=== PATIENT | female | born 1940 | race Caucasian/White ===

== ENCOUNTER → 2016-07-17 | Outpatient (CLI) | payer MEDICAID, MEDICARE ==
[2016-07-17 10:29] LABS: Basophils # (A) 0.1 k/uL (0-0.2); Basophils % (A) 2 %; CH 33.1; CHCM 33.6; Eosinophils # (A) 0.1 k/uL (0-0.7); Eosinophils % (A) 1 %; HCT 39.1 % (34.0-46.0); HDW 2.69; HGB 12.4 gm/dL (11.4-16.0); Luc # (Auto) 0.13; Luc % (Auto) 2; Lymphocytes # (A) 2.1 k/uL (1.0-4.8); Lymphocytes % (A) 37 %; MCH 31.4 pg (25.0-35.0); MCHC 31.7 g/dL (31.0-37.0); MCV 98.9 fL (80.0-100.0); Mean Platelet Volume 8.8; Monocytes # (A) 0.3 k/uL (0-1.0); Monocytes % (A) 6 %; Neutrophils # (A) 2.9 k/uL (1.3-7.7); Neutrophils % (A) 52 %; RBC 3.95 m/uL (3.80-5.40); WBC 5.7 k/uL (3.8-10.6); WBC (Perox) 5.95
[2016-07-17 10:48] LABS: ALT 35 U/L (9-52); AST 21 U/L (14-36); Alkaline Phosphatase 65 U/L (38-126); Anion Gap 11 mmol/L; Blood Urea Nitrogen 20 mg/dL (7-17); Calcium 10.2 mg/dL (8.4-10.2); Carbon Dioxide 27 mmol/L (22-30); Chloride 105 mmol/L (98-107); Cholesterol 206 mg/dL (<200); Glucose 96 mg/dL (74-99); HDL Cholesterol 65 mg/dL (40-60); Non-African American GFR(MDRD) >60 (>60 ml/min/1.73 sqM); Potassium 4.7 mmol/L (3.5-5.1); Sodium 143 mmol/L (137-145); Total Bilirubin 0.8 mg/dL (0.2-1.3); Total Protein 7.8 g/dL (6.3-8.2); Triglycerides 69 mg/dL (<150)
== END | disposition home or self-care (01) ==
LOC: LABWHC1 09:59
PROVIDERS: ATTEND Family Medicine
DX: Z00.00 Encounter for general adult medical examination without abnormal findings (principal); I10 Essential (primary) hypertension; Z13.220 Encounter for screening for lipoid disorders; Z13.6 Encounter for screening for cardiovascular disorders
CPT/HCPCS: 36415; 80053; 80061; 85025

== ENCOUNTER → 2017-07-21 | Outpatient (CLI) | payer MEDICAID, MEDICARE ==
[2017-07-21 11:43] LABS: Basophils % (A) 1 %; Eosinophils # (A) 0.1 k/uL (0-0.7); Eosinophils % (A) 2 %; HCT 35.9 % (34.0-46.0); HGB 11.9 gm/dL (11.4-16.0); Lymphocytes # (A) 1.8 k/uL (1.0-4.8); Lymphocytes % (A) 30 %; MCH 32.8 pg (25.0-35.0); MCHC 33.1 g/dL (31.0-37.0); MCV 99.1 fL (80.0-100.0); Mean Platelet Volume 7.7; Monocytes # (A) 0.3 k/uL (0-1.0); Monocytes % (A) 5 %; Neutrophils # (A) 3.8 k/uL (1.3-7.7); Neutrophils % (A) 61 %; Platelet Count 273 k/uL (150-450); RBC 3.62 m/uL (3.80-5.40); RDW 13.1 % (11.5-15.5); WBC 6.2 k/uL (3.8-10.6)
[2017-07-21 11:53] LABS: ALT 37 U/L (9-52); AST 30 U/L (14-36); Albumin 4.2 g/dL (3.5-5.0); Alkaline Phosphatase 59 U/L (38-126); Anion Gap 9 mmol/L; Blood Urea Nitrogen 20 mg/dL (7-17); Calcium 10.1 mg/dL (8.4-10.2); Carbon Dioxide 27 mmol/L (22-30); Chloride 105 mmol/L (98-107); Cholesterol 171 mg/dL (<200); Glucose 95 mg/dL (74-99); HDL Cholesterol 53 mg/dL (40-60); LDL Cholesterol,Calculated 100 mg/dL (0-99); Potassium 4.7 mmol/L (3.5-5.1); Sodium 141 mmol/L (137-145); Total Bilirubin 0.5 mg/dL (0.2-1.3); Total Protein 7.1 g/dL (6.3-8.2); Triglycerides 91 mg/dL (<150)
== END | disposition home or self-care (01) ==
LOC: LABWHC1 11:26
PROVIDERS: ATTEND Family Medicine
DX: I10 Essential (primary) hypertension (principal); Z79.899 Other long term (current) drug therapy
CPT/HCPCS: 36415; 80053; 80061; 85025

== ENCOUNTER 2018-07-09 16:18 | Emergency (ER) | payer MEDICAID, MEDICARE ==
[2018-07-09 16:28] VITALS: BP 144/76; PULSE 81; RESP 20; TEMP 97.6
[2018-07-09] MEDS ORDERED: PROPARACAINE 0.5% OPHTH DROPS 15 ML BTL RIGHT EYE STA (17:36)
[2018-07-09] MEDS ORDERED: traMADol 50 MG STARTER PACK 3 TAB BTL PO STA (17:51)
--- NOTE | 2018-07-09 18:41 | ED ---
Eye Problem HPI - General Chief complaint: Eye Problems Stated complaint: eye problems Time Seen by Provider: 07/09/18 16:34 Source: patient Mode of arrival: ambulatory Limitations: no limitations - History of Present Illness Initial comments: 77 or female with past medical history of hypertension presenting today for chief complaint of crusting and discharge from right eye. Patient states that 2 days ago she was changing nephrostomy tube at work with a patient with known MRSA infection when a small amount splashed on the right side of her face. Patient states that she was concerned and had entered her eye. Patient states today she woke up with crusting of the right eye. She states that the eye felt irritated and she noticed mild erythema. Patient was concerned for MRSA infection of the right eye. Patient denies any headache, nausea, vomiting. Patient denies any visual changes or diplopia. Patient denies vision loss. Patient denies any pain to palpation of the face or erythema surrounding the right eye. Patient denies any ear pain. Patient denies any trauma to the eye. Remainder of ROS negative, patient denies any recent fever, chills, shortness of breath, chest pain, back pain, abdominal pain, nausea or vomiting, numbness or tingling, dysuria or hematuria, constipation or diarrhea, headaches or visual changes, or any other complaints.. Upon arrival patient's visual acuity is 20/100 OD, OS and OU with corrective lenses. - Related Data Previous Rx's Medication Instructions Recorded Ofloxacin 0.3% Ophth Soln [Ocuflox 1 drops RIGHT EYE QID 7 Days #1 07/09/18 Ophth Soln] bottle Allergies Allergy/AdvReac Type Severity Reaction Status Date / Time morphine AdvReac Hallucinati Verified 07/09/18 16:28 ons Review of Systems ROS Statement: Those systems with pertinent positive or pertinent negative responses have been documented in the HPI. ROS Other: All systems not noted in ROS Statement are negative. Past Medical History Past Medical History: No Reported History History of Any Multi-Drug Resistant Organisms: None Reported Past Surgical History: Hysterectomy, Joint Replacement Additional Past Surgical History / Comment(s): knee Past Psychological History: No Psychological Hx Reported Smoking Status: Never smoker Past Alcohol Use History: None Reported Past Drug Use History: None Reported General Exam - General Exam Comments Initial Comments: General: The patient is awake and alert, in no distress, and does not appear acutely ill. Eye: +3 mm pupils are equal, round and reactive to light, extra-ocular movements are intact.,no pain with extraocular eye movement No APD No nystagmus. Very mild conjunctival injection of the right eye, no noted crusting or discharge. No signs of icterus. Visual domingo intact to confrontation. IOP 8 OD, 9 OS. Slit lamp exam performed revealing no cell and flare. No evidence of uptake of fluorescein stain. No evidence of foreign body. Mild photophobia. Improvement of pain with application of proparacaine. No surrounding erythema, or soft tissue swelling of the right orbit Ears, nose, mouth and throat: There are moist mucous membranes and no oral lesions. No pain to palpation of the temporal artery. Normal examination of the tympanic membrane. No lesions noted of the face or ears. No lesions of the tip of the nose. Cardiovascular: There is a regular rate and rhythm. No murmur, rub or gallop is appreciated. Respiratory: Lungs are clear to auscultation, respirations are non-labored, breath sounds are equal. No wheezes, stridor, rales, or rhonchi. Musculoskeletal: Normal ROM, no tenderness. Strength 5/5. Sensation intact. Pulses equal bilaterally 2+. Neurological: A&O x 3. CN II-XII intact, There are no obvious motor or sensory deficits. Coordination appears grossly intact. Speech is normal. Skin: Skin is warm and dry and no rashes or lesions are noted. Psychiatric: Cooperative, appropriate mood & affect, normal judgment. Limitations: no limitations Course Vital Signs 07/09/18 16:24 Temperature 97.6 F Pulse Rate 81 Respiratory 20 Rate Blood Pressure 144/76 O2 Sat by Pulse 98 Oximetry Medical Decision Making - Medical Decision Making History of crusting of the right eye with MRSA exposure, with mild conjunctival injection of the right eye concerning for conjunctivitis. Intraocular pressures within normal limits. There is no history findings concerning for acute closure glaucoma. No pain or patient the temporal artery concerning for giant cell. Patient denies any vision loss or changes. Visual acuity is equal bilaterally. Visual domingo intact. There are no lesions concerning for herpes zoster. Ophthalmology was consult and after speaking with attending provider. Dr. Parsons spoke with Dr. dowd who recommended ofloxacin ophthalmic drops, and follow up with him in the morning at 8 AM. Patient pain was relieved with proparacaine, however patient will not be discharged with this medication. She was given a starter pack of Ultram for pain management. At this time I do feel patient is stable for discharge with strict return parameters for worsening symptoms and pain or any signs of vision loss. Patient is agreeable plan and return parameters. Patient was discharged stable condition appearing well Disposition Clinical Impression: Conjunctivitis, Exposure to MRSA Disposition: HOME SELF-CARE Condition: Good Instructions: Conjunctivitis (ED) Additional Instructions: Please use medication as discussed. Please follow-up with ophthalmology at 8AM tomorrow morning, Dr. Vang . Please return to emergency room if the symptoms increase or worsen or for any other concerns, vision loss, pain with eye movement. Prescriptions: Ofloxacin 0.3% Ophth Soln [Ocuflox Ophth Soln] 1 drops RIGHT EYE QID 7 Days #1 bottle Is patient prescribed a controlled substance at d/c from ED?: No Referrals: Oliverio Boles MD [Primary Care Provider] - 1-2 days Cary Vang MD [STAFF PHYSICIAN] - 1-2 days Time of Disposition: 18:45
[2018-07-09] MEDS ORDERED: OFLOXACIN 0.3% OPHTH DROPS 5 ML BOTTLE RIGHT EYE STA (18:42)
== END 2018-07-09 19:14 | disposition home or self-care (01) ==
LOC: EC 16:18
DX: H10.9 Unspecified conjunctivitis (principal); Z20.818 Contact with and (suspected) exposure to other bacterial communicable diseases; I10 Essential (primary) hypertension; Z88.5 Allergy status to narcotic agent
CPT/HCPCS: 99283

== ENCOUNTER → 2018-07-21 | Outpatient (CLI) | payer MEDICAID ==
[2018-07-21 11:55] LABS: Basophils % (A) 1 %; Eosinophils # (A) 0.1 k/uL (0-0.7); Eosinophils % (A) 3 %; HCT 36.4 % (34.0-46.0); HGB 11.9 gm/dL (11.4-16.0); Lymphocytes # (A) 1.8 k/uL (1.0-4.8); Lymphocytes % (A) 37 %; MCH 32.2 pg (25.0-35.0); MCHC 32.6 g/dL (31.0-37.0); MCV 98.7 fL (80.0-100.0); Mean Platelet Volume 7.8; Monocytes # (A) 0.2 k/uL (0-1.0); Monocytes % (A) 4 %; Neutrophils # (A) 2.6 k/uL (1.3-7.7); Neutrophils % (A) 52 %; Platelet Count 234 k/uL (150-450); RBC 3.69 m/uL (3.80-5.40); RDW 13.2 % (11.5-15.5); WBC 4.9 k/uL (3.8-10.6)
[2018-07-21 17:45] LABS: Albumin 4.1 g/dL (3.80-4.90); Albumin/Globulin Ratio 1.78 (1.20-2.10); Anion Gap 6.6 mmol/L (4.00-12.00); Calcium 9.7 mg/dL (8.7-10.3); Carbon Dioxide 28.4 mmol/L (21.6-31.8); Globulin 2.3 g/dL (1.6-3.3); LDL Cholesterol,Calculated 99.8 mg/dL (0.0-131.0); Potassium 4.7 mmol/L (3.5-5.5); Total Bilirubin 0.8 mg/dL (0.2-1.2); Total Protein 6.4 g/dL (6.2-8.2); VLDL Calculation 15.2 mg/dL (5.00-40.00)
== END | disposition home or self-care (01) ==
LOC: LABWHC1 10:10
PROVIDERS: ATTEND Family Medicine
DX: I10 Essential (primary) hypertension (principal)
CPT/HCPCS: 36415; 80053; 80061; 85025

== ENCOUNTER 2019-08-16 11:53 | Emergency (ER) | payer MEDICAID ==
[2019-08-16 12:09] VITALS: BP 147/83; PULSE 66; RESP 18; TEMP 97.9
[2019-08-16] MEDS ORDERED: LIDOCAINE 1% INJ 10MG/ML (20 ML MDV) SQ ONE (12:38)
--- NOTE | 2019-08-16 12:41 | ED ---
General Adult HPI - General Chief complaint: Skin/Abscess/Foreign Body Stated complaint: poss plugged lymph node Time Seen by Provider: 08/16/19 12:11 Source: patient, RN notes reviewed, old records reviewed Mode of arrival: ambulatory Limitations: no limitations - History of Present Illness Initial comments: 78-year-old female presenting with pain and swelling in the left armpit. She's had 5 days of swelling and erythema as well as pain. This started as a hair follicle or pimple in the arm. She is nondiabetic, otherwise healthy. No fever or chills. No constitutional symptoms. No history of MRSA. - Related Data Previous Rx's Medication Instructions Recorded Ofloxacin 0.3% Ophth Soln [Ocuflox 1 drops RIGHT EYE QID 7 Days #1 07/09/18 Ophth Soln] bottle Cephalexin [Keflex] 500 mg PO Q12HR #20 cap 08/16/19 HYDROcodone/APAP 5-325MG [[place] 1 tab PO Q6HR PRN #12 tab 08/16/19 5-325] Sulfamethox-Tmp 800-160Mg [Bactrim 1 tab PO Q12HR #28 tab 08/16/19 DS 800-160 mg] Allergies Allergy/AdvReac Type Severity Reaction Status Date / Time morphine AdvReac Hallucinati Verified 08/16/19 12:06 ons Review of Systems ROS Statement: Those systems with pertinent positive or pertinent negative responses have been documented in the HPI. ROS Other: All systems not noted in ROS Statement are negative. Past Medical History Past Medical History: Hypertension History of Any Multi-Drug Resistant Organisms: None Reported Past Surgical History: Hysterectomy, Joint Replacement Additional Past Surgical History / Comment(s): knee Past Psychological History: No Psychological Hx Reported Smoking Status: Never smoker Past Alcohol Use History: Occasional Past Drug Use History: None Reported General Exam Limitations: no limitations General appearance: alert, in no apparent distress Head exam: Present: atraumatic, normocephalic Eye exam: Present: normal appearance, PERRL Neck exam: Present: normal inspection Respiratory exam: Absent: respiratory distress Cardiovascular Exam: Present: regular rate, normal rhythm Extremities exam: Present: other (Left axilla, there is a 2 cm x 2 cm area of induration with central fluctuance and overlying erythema, minimal surrounding cellulitis.) Course Vital Signs 08/16/19 12:07 Temperature 97.9 F Pulse Rate 66 Respiratory 18 Rate Blood Pressure 147/83 O2 Sat by Pulse 99 Oximetry Procedures - Incision & Drainage Consent Obtained: verbal consent Site: other (Left axilla) Size (cm): 2 Anesthetic Used: lidocaine 1% Amount (mLs): 2 I&D Cleaning Method: Chloroprep Sterile Field Used?: Yes Scalpel Used: #11 Needle Aspiration Performed?: No Irrigation Performed?: Yes I&D Drainage Obtained: Pus, Blood Packing: Iodoform Culture Obtained?: Yes Patient Tolerated Procedure: well Medical Decision Making - Medical Decision Making 78-year-old female presenting with fluctuant abscess in the left axilla approximately 1 cm central fluctuance with 2 cm surrounding induration. I&D was performed with purulent material which was sent for culture. Iodoform packing was placed. Patient will be initiated on antibiotics. She will follow-up with her primary care physician for evaluation. She will return with worsening erythema, swelling, fever. Disposition Clinical Impression: Folliculitis, Abscess of axilla, left Disposition: HOME SELF-CARE Condition: Good Instructions (If sedation given, give patient instructions): Abscess Incision and Drainage (ED), Abscess (ED) Prescriptions: Sulfamethox-Tmp 800-160Mg [Bactrim DS 800-160 mg] 1 tab PO Q12HR #28 tab Cephalexin [Keflex] 500 mg PO Q12HR #20 cap HYDROcodone/APAP 5-325MG [[place] 5-325] 1 tab PO Q6HR PRN #12 tab PRN Reason: Pain Is patient prescribed a controlled substance at d/c from ED?: No Referrals: Oliverio Boles MD [Primary Care Provider] - 1-2 days Time of Disposition: 12:41
== END 2019-08-16 12:50 | disposition home or self-care (01) ==
LOC: EC 11:53
DX: L02.412 Cutaneous abscess of left axilla (principal); L73.9 Follicular disorder, unspecified; I10 Essential (primary) hypertension; Z88.5 Allergy status to narcotic agent
CPT/HCPCS: 87070; 87205; 99284; 10060; J2001

== ENCOUNTER 2020-08-06 14:38 | Emergency (ER) | payer MEDICAID, MEDICARE ==
--- NOTE | 2020-08-06 15:42 | ED ---
General Adult HPI - General Stated complaint: Cardiac Arrest Time Seen by Provider: 08/06/20 14:53 Source: family, EMS, RN notes reviewed, old records reviewed Mode of arrival: EMS Limitations: no limitations - History of Present Illness Initial comments: 79 yo male presenting as out of Hospital cardiac arrest. Initial call was for respiratory difficulties, EMS arrived for the patient to be cyanotic with labored breathing. Apparently she was initially somewhat unresponsive but quickly progressed to respiratory arrest and cardiac arrest. She was found to be in asystole. She was intubated by EMS shortly after arrival. Her resuscitation was according to ACLS protocol. She had received multiple doses of epinephrine by EMS prior to arrival. Her approximate arrest time was 1350. She was transported with the Steve compressive device. CPR was continued as well as ventilation.. She had had been extubated and reintubated with some difficulty by EMS. She was receiving BVM ventilation at the time of arrival. Past medical history of hypertension and CHF. According to EMS she never had an or denies rhythm of any kind asystole throughout. - Related Data Previous Rx's Medication Instructions Recorded Ofloxacin 0.3% Ophth Soln [Ocuflox 1 drops RIGHT EYE QID 7 Days #1 07/09/18 Ophth Soln] bottle Cephalexin [Keflex] 500 mg PO Q12HR #20 cap 08/16/19 HYDROcodone/APAP 5-325MG [[place] 1 tab PO Q6HR PRN #12 tab 08/16/19 5-325] Sulfamethox-Tmp 800-160Mg [Bactrim 1 tab PO Q12HR #28 tab 08/16/19 DS 800-160 mg] Allergies Allergy/AdvReac Type Severity Reaction Status Date / Time morphine AdvReac Hallucinati Verified 08/06/20 15:09 ons Review of Systems ROS Statement: Those systems with pertinent positive or pertinent negative responses have been documented in the HPI. ROS Other: All systems not noted in ROS Statement are negative. Past Medical History Past Medical History: Hypertension History of Any Multi-Drug Resistant Organisms: None Reported Past Surgical History: Hysterectomy, Joint Replacement Additional Past Surgical History / Comment(s): knee Past Psychological History: No Psychological Hx Reported Past Alcohol Use History: Occasional Past Drug Use History: None Reported General Exam Limitations: no limitations General appearance: other (Nonresponsive, cyanotic) Head exam: Present: atraumatic, normocephalic Eye exam: Absent: PERRL (Pupils are nonreactive, 8 mm bilaterally, ) Neck exam: Present: normal inspection Respiratory exam: Present: other (Patient has diminished breath sounds bilaterally with BVM) Cardiovascular Exam: Present: other (Asystole on the monitor, no spontaneous heart sounds) GI/Abdominal exam: Present: soft, distended. Absent: tenderness, guarding, rebound Extremities exam: Absent: normal capillary refill Neurological exam: Present: other (Nonresponsive, no spontaneous movement) Skin exam: Present: cyanosis Procedures - Intubation Laryngoscope: Leandro Size: 3 ET Tube Size: 7.5 ET Tube Uncuffed: No Other Airway Intervention: none Tube Secured Depth (cm): 22 Tube Secured Location: lips Tube Placement Confirmation: visualized tube passing through cords, equal breath sounds bilaterally, no breath sounds over epigastrium, confirmation by capnometry Patient Tolerated Procedure: well Intubation Complications: difficult intubation Additional Comments: Patient had previous attempts by EMS with some oropharyngeal bleeding, airway was poorly visualized during intubation. Medical Decision Making - Medical Decision Making 79-year-old female presenting in cardiopulmonary arrest. Patient is asystole on the monitor. CPR and resuscitation is continued according to ACLS protocol. She did receive a definitive airway in the emergency department. She was continued on the Steve device. Please see nursing documentation for complete resuscitation efforts. Ultimately there was no return of spontaneous circulation, bedside ultrasound was performed with no cardiac activity, cardiac standstill. Time of was called at 1451. I was able to discuss with the patient's son as well as Chanell ramos for Dr. Boles her primary care physician. Dr. Boles will sign the certificate. Case was discussed with the nuclear medicine medical director who is agreeable with release. Cause of cardiopulmonary arrest, asystole. Disposition Clinical Impression: Asystole, Cardiopulmonary arrest Disposition: Condition: Undetermined Is patient prescribed a controlled substance at d/c from ED?: No Referrals: None,Stated [Primary Care Provider] - 1-2 days Time of Disposition: 14:51 Preliminary Cause of : Cardiopulmonary arrest
== END 2020-08-06 16:24 | disposition expired ==
LOC: EC 14:38
DX: I46.9 Cardiac arrest, cause unspecified (principal); Z88.5 Allergy status to narcotic agent; Z96.60 Presence of unspecified orthopedic joint implant
CPT/HCPCS: 31500; 99285